=== PATIENT | male | born 1975 | race Caucasian/White ===

== ENCOUNTER 2020-03-25 11:22 | Emergency (ER) | payer SELFPAY ==
[~2020-03-25] VITALS: Ht 157.5 cm; Wt 66.0 kg
[2020-03-25] MEDS ORDERED: HYDROCODONE/ACETAMINOPHEN 5/325MG TABLET PO ONE (12:00)
[2020-03-25] MEDS ORDERED: LIDOCAINE HCL/EPINEPHRINE 1%-EPI 1:100,000 30 ML VIAL INFIL ONE (12:00)
[2020-03-25] MEDS ORDERED: LIDOCAINE HCL/EPINEPHRINE 1%-EPI 1:100,000 20 ML VIAL INFIL NR (12:30)
[2020-03-25] MEDS ORDERED: TETANUS, DIPHTHERIA, PERTUSSIS VAC/PF 0.5ML (>7YR OLD) IM ONE (13:45)
[2020-03-25 13:58] VITALS: BP 141/88
== END 2020-03-25 14:01 | disposition home or self-care (01) ==
LOC: ER 11:22
DX: S41.112A Laceration without foreign body of left upper arm, initial encounter (principal); X78.8XXA Intentional self-harm by other sharp object, initial encounter; Y93.89 Activity, other specified; Y92.89 Other specified places as the place of occurrence of the external cause; Y99.8 Other external cause status
CPT/HCPCS: 12002; 90471; 90715; 99283; A4217; J3490; Z7610